=== PATIENT | female | born 1950 ===

== ENCOUNTER 2019-02-19 06:13 | Day surgery (SDC) | payer OTHER ==
[~2019-02-19 06:13] MED LIST: DIOVAN HCT 1601 EACH PO; JANUVIA50 MG PO; LIPI PO; PAMELOR50 M1 PO; VOLTAREN100 GM; ZANTAC300 MG PO
[2019-02-19] MEDS ORDERED: PERCOCET 5-3251 EACH PO (11:14)
== END 2019-02-19 15:55 | disposition home or self-care (01) ==
LOC: CIR.AMB 06:13
DX: N83.291 Other ovarian cyst, right side (principal)